=== PATIENT | female | born 1990 | race Caucasian/White ===

== ENCOUNTER 2020-01-19 03:30 | Inpatient (IN) | payer OTHER ==
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
[2020-01-19] MEDS ORDERED: Tranexamic Acid 1,000 MG in Sodium Chloride 0.9% 100 ML IV PRN (04:16)
[2020-01-19] MEDS ORDERED: Acetaminophen 325 MG Tab PO PRN (04:16)
[2020-01-19] MEDS ORDERED: Carboprost Tromethamine 250 MCG/1 ML Amp IM PRN (04:16)
[2020-01-19] MEDS ORDERED: Lidocaine 1% 30 ML SDV INJECT PRN (04:16)
[2020-01-19] MEDS ORDERED: Methylergonovine 0.2 MG/1 ML Amp IM PRN (04:16)
[2020-01-19] MEDS ORDERED: Ondansetron 4 MG/2 ML SDV IVPUSH PRN (04:16)
[2020-01-19] MEDS ORDERED: Sodium Chloride 0.9% 10 ML Syringe FLUSH PRN (04:16)
[2020-01-19] MEDS ORDERED: Misoprostol 400 MCG (4 X 100 MCG TAB) RECTAL PRN (04:16)
[2020-01-19] MEDS ORDERED: Oxytocin/Normal Saline 30 UNIT/500 ML BAG IV SCH (04:30)
[2020-01-19] MEDS ORDERED: Lactated Ringers 1,000 ML IV SCH (04:30)
--- NOTE | 2020-01-19 13:26 | PCM.DEL ---
L & D Note - General Info Date of Service: 01/19/20 (time of delivery: 1230) Mother's Due Date: 01/26/20 (39w0d) - Delivery Note Labor: Spontaneous, Augmented by ARM Delivery Outcome: Livebirth Delivery Method: Spontaneous Vaginal Delivery-Single Infant Delivery Mode: Spontaneous Presentation: Right Occiput Anterior (FEDE) Nuchal Cord: None Prep: Povidone-Iodine (Betadine Anesthesia Type: None Amniotic Fluid Description: Clear Episiotomy Type: None Laceration: None Placenta: Intact, Expressed Cord: 3 Vessels Estimated Blood Loss: 100 Resuscitation Needed: No [place]: Bulb Syringe, Stimulated, Warmed Provider: Nanci Kiran (Angel present) Second Stage Interventions: Reports: Encouragement Given, Other (see below) (laying right side) Delivery Comments (Free Text/Narrative):: Myra labored on her right side with peanut ball in between legs with good results. felt pressure and urge to push. on check--small rim of cervix noted. set up for delivery with pushing through one contraction, brought head down to . with next contraction, head delivered. FOB/ Danilo assisted with delivery of rest of infant well female, dried and stimulated, then placed on mom's chest for bonding and nursing further assessment and evalution done by nursing staff. APGARs excellent BW pending cord clamped X 2 then cut by FOB cord blood obtained perineum intact placenta delivered complete/intact and examined EBL <100. uterus firm, pitocin per protocol baby . both mom and baby stable and will follow routine nursery and orders. no complications. Angel present. - General Info Date of Service: 01/19/20 - Patient Data Vitals - Most Recent: Last Vital Signs Temp 98.2 F 01/19/20 08:45 Pulse 107 H 01/19/20 08:30 Resp 14 01/19/20 08:30 BP 121/76 01/19/20 08:30 Pulse Ox Weight - Most Recent: 139 lb Lab Results Last 24 Hours: Laboratory Results - last 24 hr 01/19/20 01/19/20 Range/Units 03:50 04:15 WBC 7.9 (5.0-10.0) 10^3/uL RBC 4.65 (4.2-5.4) 10^6/uL Hgb 14.2 D (12.0-16.0) g/dL Hct 41.5 (37.0-47.0) % MCV 89.2 (80-100) fL MCH 30.5 (27.0-34.0) pg MCHC 34.2 (33.0-35.0) g/dL Plt Count 173 (150-450) 10^3/uL SARS CoV-2 RNA Rapid ARNULFO Negative (NEGATIVE) Med Orders - Current: Current Medications Acetaminophen (Tylenol) 650 mg PO Q4H PRN PRN Reason: Pain (Mild 1-3) and fever Carboprost Tromethamine (Hemabate Ds) 250 mcg IM ASDIRECTED PRN PRN Reason: HEMORRHAGE Tranexamic Acid 1,000 mg/ (Sodium Chloride) 110 mls @ 660 mls/hr IV ONETIME PRN PRN Reason: Bleeding Oxytocin/Sodium Chloride (Pitocin In Ns 30 Unit/500 Ml) 30 unit in 500 mls @ 2 mls/hr IV TITRATE ILENE; Protocol Lactated Ringer's (Ringers, Lactated) 1,000 mls @ 125 mls/hr IV ASDIRECTED ILENE Lidocaine HCl (Xylocaine-Mpf 1%) 30 ml INJECT ASDIRECTED PRN PRN Reason: Perineal Repair Methylergonovine Maleate (Methergine) 0.2 mg IM ASDIRECTED PRN PRN Reason: Hemorrhage Misoprostol (Cytotec) 800 mcg RECTAL ASDIRECTED PRN PRN Reason: Hemorrhage Ondansetron HCl (Zofran) 4 mg IVPUSH Q4H PRN PRN Reason: Nausea/Vomiting Sodium Chloride (Saline Flush) 10 ml FLUSH ASDIRECTED PRN PRN Reason: Keep Vein Open - Problem List & Annotations (1) Term SNOMED Code(s): 78159108 Code(s): Z34.90 - ENCNTR FOR SUPRVSN OF NORMAL , UNSP, UNSP TRIMESTER Status: Acute Current Visit: Yes (2) Onset (spontaneous) of labor after 37 completed weeks of gestation but before 39 completed weeks gestation, with delivery by (planned) section SNOMED Code(s): 81926371, 880219136 Code(s): O75.82 - ONSET LABOR 37-39 WEEKS, W DEL BY (PLANNED) SECTION Status: Acute Current Visit: Yes (3) Blood type O+ SNOMED Code(s): 240524967 Code(s): Z67.40 - TYPE O BLOOD, RH POSITIVE Status: Acute Current Visit: Yes (4) Group B Streptococcus not isolated SNOMED Code(s): 360251580 Code(s): [id number] - Status: Acute Current Visit: Yes (5) Rubella immune SNOMED Code(s): 329495928 Code(s): Z78.9 - OTHER SPECIFIED HEALTH STATUS Status: Acute Current Visit: Yes (6) Retinal disorder, right SNOMED Code(s): 46758270 Code(s): H35.9 - UNSPECIFIED RETINAL DISORDER Status: Acute Current Visit: Yes - Problem List Review Problem List Initiated/Reviewed/Updated: Yes - My Orders Last 24 Hours: My Active Orders 01/19/20 04:16 Patient Status [ADT] Routine Communication Order [RC] ASDIRECTED Heart Tones [RC] PER UNIT ROUTINE Notify Provider Vital Signs OB [RC] ASDIRECTED Notify Provider [RC] PRN Up ad Sherlyn [RC] ASDIRECTED Vital Signs [RC] PER UNIT ROUTINE Acetaminophen [TylenoL] 650 mg PO Q4H PRN Carboprost Tromethamine [Hemabate DS] 250 mcg IM ASDIRECTED PRN Lidocaine 1% [Xylocaine-MPF 1%] 30 ml INJECT ASDIRECTED PRN Methylergonovine [Methergine] 0.2 mg IM ASDIRECTED PRN Ondansetron [Zofran] 4 mg IVPUSH Q4H PRN Sodium Chloride 0.9% [Saline Flush] 10 ml FLUSH ASDIRECTED PRN Tranexamic Acid [Cyklokapron] 1,000 mg Sodium Chloride 0.9% [Normal Saline] 100 ml IV ONETIME miSOPROStoL [Cytotec] 800 mcg RECTAL ASDIRECTED PRN Saline Lock Insert [OM.PC] Routine Resuscitation Status Routine 01/19/20 04:18 Pump Management, Intrathecal [RC] ASDIRECTED 01/19/20 04:30 Lactated Ringers [Ringers, Lactated] 1,000 ml IV ASDIRECTED Oxytocin/Normal Saline [Pitocin in NS 30 UNIT/500 ML] 30 unit in 500 ml IV TITRATE - Plan Plan:: Assessment: 29yo @ 39 weeks with onset cxns. Cervix 4-5cm dilated, 75%, -1/2 station, vertex well applied, SIERRA, AROM clear fluid large amount. blood type O+ GBS negative Rubella immune NST reactive COVID drawn and pending. NEGATIVE. Plan: admit orders placed with routine orders and instructions. Continue to monitor closely. further management pending her course in labor. would like to avoid intrathecal if possible, may utilize Nitrox plans to breastfeed. CBC. all WNL. hmb hmb Delivery update: time of delivery 1230 on 01-19-2020 viable term female. "Lindsey Elizabeth" APGARs and BW pending Excellent clinical status. rooming in skin to skin and nursing.
[2020-01-19] MEDS ORDERED: Benzocaine/Menthol 20%-0.5% Spray 56 GM Canister TOP PRN (13:29)
[2020-01-19] MEDS ORDERED: Simethicone 80 MG Tab.Chew PO PRN (13:29)
[2020-01-19] MEDS ORDERED: Zolpidem 5 MG Tab PO PRN (13:29)
[2020-01-19] MEDS: Ibuprofen 800 MG Tab PO PRN (13:59)
[2020-01-19] MEDS: Docusate Sodium 100 MG Cap PO PRN (19:15)
[2020-01-20] MEDS: Ibuprofen 800 MG Tab PO PRN ×3 (00:08→18:31)
[2020-01-20] MEDS: Docusate Sodium 100 MG Cap PO PRN ×2 (09:37→20:14)
[2020-01-21] MEDS: Ibuprofen 800 MG Tab PO PRN (08:52)
[2020-01-21] MEDS: Docusate Sodium 100 MG Cap PO PRN (08:53)
[2020-01-21 12:48] VITALS: BP 132/85; PULSE 88
== END 2020-01-21 10:20 | disposition home or self-care (01) | DRG 807 ==
LOC: DL.OBCHECK 03:30 → DL.OB 04:16 → UNDOADMIN 04:16 → DL.OB 12:31
PROVIDERS: ADMIT Family Medicine; ATTEND Family Medicine
PROC: 10E0XZZ Delivery of Products of Conception, External Approach (ICD-10-PCS; principal; 2020-01-19)
PROC: 10907ZC Drainage of Amniotic Fluid, Therapeutic from Products of Conception, Via Natural or Artificial Opening (ICD-10-PCS; 2020-01-19)
DX: O80 Encounter for full-term uncomplicated delivery (principal); Z37.0 Single live birth; Z3A.39 39 weeks gestation of pregnancy; Z20.828 Contact with and (suspected) exposure to other viral communicable diseases
CPT/HCPCS: 36415; 59409; 85027; A9270-GY; J2590; J7120; U0002

== ENCOUNTER 2022-12-01 21:12 | Inpatient (IN) | payer MEDICAID, OTHER ==
[~2022-12-01 21:12] MED LIST: Acetaminophen 325 MG Tab PO PRN; Carboprost Tromethamine 250 MCG/1 ML Amp IM PRN; Lactated Ringers 1,000 ML IV ONE; Lactated Ringers 1,000 ML IV SCH; Lidocaine 1% 30 ML SDV INJECT ONE; Methylergonovine 0.2 MG/1 ML Amp IM PRN; Misoprostol 400 MCG (4 X 100 MCG TAB) RECTAL PRN; Ondansetron 4 MG/2 ML SDV IVPUSH PRN; Oxytocin/Normal Saline 30 UNIT/500 ML BAG IV SCH; Sodium Chloride 0.9% 10 ML Syringe FLUSH PRN; Tranexamic Acid 1,000 MG in Sodium Chloride 0.9% 100 ML IV PRN
[2022-12-01 21:37] LABS: HEMATOCRIT 38.2 % (37.0-47.0); HEMOGLOBIN 13.1 g/dL (12.0-16.0); MEAN CORPUSCULAR HEMOGLOBIN 29.4 pg (27.0-34.0); MEAN CORPUSCULAR HGB CONC 34.3 g/dL (33.0-35.0); MEAN CORPUSCULAR VOLUME 85.8 fL (80-100); RED BLOOD CELL COUNT 4.45 10^6/uL (4.2-5.4); WHITE BLOOD CELL COUNT,WBC 8.4 10^3/uL (5.0-10.0)
[2022-12-01] MEDS ORDERED: Benzocaine/Menthol 20%-0.5% Spray 78 GM Cannister TOP PRN (22:49)
[2022-12-01] MEDS ORDERED: Misoprostol 400 MCG (4 X 100 MCG TAB) RECTAL PRN (22:49)
[2022-12-01] MEDS ORDERED: Oxytocin 10 Units/1 ML SDV IM PRN (22:49)
[2022-12-01] MEDS ORDERED: Acetaminophen 325 MG Tab PO PRN (22:49)
[2022-12-01] MEDS ORDERED: Simethicone 80 MG Tab.Chew PO PRN (22:49)
[2022-12-01] MEDS ORDERED: Tranexamic Acid 1,000 MG in Sodium Chloride 0.9% 100 ML IV PRN (22:49)
[2022-12-01] MEDS ORDERED: Carboprost Tromethamine 250 MCG/1 ML Amp IM PRN (22:49)
[2022-12-01] MEDS ORDERED: Sodium Chloride 0.9% 10 ML Syringe FLUSH PRN (22:49)
[2022-12-01] MEDS ORDERED: Docusate Sodium 100 MG Cap PO PRN (22:49)
[2022-12-01] MEDS: Ibuprofen 800 MG Tab PO PRN (23:08)
[2022-12-02] MEDS: Ibuprofen 800 MG Tab PO PRN ×2 (08:24→17:55)
[2022-12-02] MEDS: Prenatal Multivitamin with Calcium/Folic Acid/Iron Tab PO SCH (08:24)
[2022-12-03] MEDS: Ibuprofen 800 MG Tab PO PRN (03:33)
[2022-12-03] MEDS: Prenatal Multivitamin with Calcium/Folic Acid/Iron Tab PO SCH (09:45)
[2022-12-03 10:20] VITALS: BP 121/77; PULSE 91
== END 2022-12-03 10:05 | disposition home or self-care (01) | DRG 806 ==
LOC: DL.OBCHECK 21:12 → DL.OB 21:25 → OBSVTOIN 22:33
PROVIDERS: ADMIT Family Medicine; ATTEND Family Medicine
PROC: 10E0XZZ Delivery of Products of Conception, External Approach (ICD-10-PCS; principal; 2022-12-01)
DX: O60.14X0 Preterm labor third trimester with preterm delivery third trimester, not applicable or unspecified (principal); F33.9 Major depressive disorder, recurrent, unspecified; Z37.0 Single live birth; O99.354 Diseases of the nervous system complicating childbirth; G43.909 Migraine, unspecified, not intractable, without status migrainosus; O99.344 Other mental disorders complicating childbirth; Z3A.36 36 weeks gestation of pregnancy
CPT/HCPCS: 36415; 59409; 85027; A9270-GY; J2590; J7120